=== PATIENT | female | born 1960 ===

== ENCOUNTER 2023-12-04 09:21 | Outpatient (CLI) | payer OTHER | END 2023-12-04 09:32 | disposition home or self-care (01) | LOC: SONOGRAMA 09:21 | PROVIDERS: ATTEND Specialist | DX: M05.79 Rheumatoid arthritis with rheumatoid factor of multiple sites without organ or systems involvement (principal) ==

== ENCOUNTER 2023-12-07 09:08 | Outpatient (CLI) | payer OTHER | END 2023-12-07 09:17 | disposition home or self-care (01) | LOC: SONOGRAMA 09:08 | PROVIDERS: ATTEND Specialist | DX: M05.79 Rheumatoid arthritis with rheumatoid factor of multiple sites without organ or systems involvement (principal) ==